=== PATIENT | female | born 1990 | race Two or more races ===

== ENCOUNTER 2022-01-01 00:30 | Emergency (ER) | payer SELFPAY ==
[~2022-01-01] VITALS: Ht 157.5 cm; Wt 105.0 kg
[2022-01-01] MEDS ORDERED: NALOXONE HCL 0.4 MG/ML 1ML VIAL IM ONE (01:15)
[2022-01-01] MEDS ORDERED: NALO4SPR BOTHNSTRLS (02:51)
[2022-01-01 04:16] VITALS: BP 112/71
== END 2022-01-01 04:17 | disposition home or self-care (01) ==
LOC: ER 00:30
DX: T50.901A Poisoning by unspecified drugs, medicaments and biological substances, accidental (unintentional), initial encounter (principal); R41.82 Altered mental status, unspecified; R55 Syncope and collapse; R42 Dizziness and giddiness; R53.1 Weakness; F19.10 Other psychoactive substance abuse, uncomplicated; Y92.488 Other paved roadways as the place of occurrence of the external cause
CPT/HCPCS: 96372; 99283; J2310